=== PATIENT | female | born 1990 | race African-American/Black ===

== ENCOUNTER 2018-11-22 12:02 | Observation (INO) | payer OTHER ==
[2018-11-22 12:45] LABS: BILIRUBIN,URINE NEGATIVE (NEG); CLARITY,URINE CLOUDY; COLOR,URINE YELLOW; NITRITE,URINE NEGATIVE (NEG); PROTEIN,URINE NEGATIVE (NEG-TRACE); UROBILINOGEN,URINE 0.2 mg/dL (0.2 mg/dL)
[2018-11-22 12:51] LABS: AMPHETAMINE/METHAMPHETAMINE NEG (NEG); BARBITURATES NEG (NEG); BENZODIAZEPINES NEG (NEG); CANNABINOIDS NEG (NEG); COCAINE NEG (NEG); METHADONE NEG (NEG); OPIATES NEG (NEG); PHENCYCLIDINE NEG (NEG)
[2018-11-22 12:54] LABS: SQUAMOUS EPITHELIAL CELL,UR MOD /LPF
[2018-11-22 12:55] LABS: BACTERIA,URINE MANY /HPF (0-FEW); RBC,URINE 0 /HPF (0-2); TRICHOMONAS,URINE PRESENT; WBC,URINE 20-40 /HPF (0-4); YEAST,URINE PRESENT /HPF
[2018-11-22] MEDS: metroNIDAZOLE 500 MG TABLET PO ONE (14:18)
== END 2018-11-22 14:50 | disposition home or self-care (01) ==
LOC: 3 SO LND 12:02
PROVIDERS: ADMIT Obstetrics & Gynecology; ATTEND Obstetrics & Gynecology
DX: O26.893 Other specified pregnancy related conditions, third trimester (principal); R10.30 Lower abdominal pain, unspecified; Z3A.31 31 weeks gestation of pregnancy
CPT/HCPCS: 80307; 81001; 87086; G0378; G0379